=== PATIENT | female | born 1950 | race Caucasian/White ===

== ENCOUNTER 2019-05-31 10:07 | Outpatient (CLI) | payer OTHER | END 2019-05-31 15:10 | disposition home or self-care (01) | LOC: RAD 10:07 | DX: Z00.8 Encounter for other general examination (principal) ==

== ENCOUNTER → 2019-12-29 08:09 | Outpatient (CLI) | payer OTHER | END | disposition home or self-care (01) | LOC: LAB 08:09 | PROVIDERS: ATTEND Ophthalmology | DX: Z20.828 Contact with and (suspected) exposure to other viral communicable diseases (principal); E78.49 Other hyperlipidemia; D51.1 Vitamin B12 deficiency anemia due to selective vitamin B12 malabsorption with proteinuria; E05.80 Other thyrotoxicosis without thyrotoxic crisis or storm; E55.9 Vitamin D deficiency, unspecified; N95.8 Other specified menopausal and perimenopausal disorders; A53.9 Syphilis, unspecified; R05 Cough; R06.2 Wheezing; R50.9 Fever, unspecified ==

== ENCOUNTER → 2020-01-24 | Outpatient (CLI) | payer OTHER | END | disposition home or self-care (01) | LOC: PPH VACUNA 08:00 | DX: Z23 Encounter for immunization (principal) ==

== ENCOUNTER → 2020-09-02 12:15 | Outpatient (CLI) | payer OTHER | END | disposition home or self-care (01) | LOC: LAB 12:15 | PROVIDERS: ATTEND Emergency Medicine Pediatric Emergency Medicine | DX: R05 Cough (principal); R50.9 Fever, unspecified; R06.02 Shortness of breath; Z03.818 Encounter for observation for suspected exposure to other biological agents ruled out; Z20.822 Contact with and (suspected) exposure to COVID-19; Z20.828 Contact with and (suspected) exposure to other viral communicable diseases ==

== ENCOUNTER 2020-10-30 08:34 | Outpatient (CLI) | payer OTHER | END 2020-10-30 15:17 | disposition home or self-care (01) | LOC: LAB 08:34 | PROVIDERS: ATTEND Emergency Medicine Pediatric Emergency Medicine | DX: E78.00 Pure hypercholesterolemia, unspecified (principal) ==

== ENCOUNTER 2021-01-26 08:00 | Outpatient (CLI) | payer OTHER | END 2021-01-26 08:30 | disposition home or self-care (01) | LOC: PPH VACUNA 08:00 | PROVIDERS: ATTEND Emergency Medicine Pediatric Emergency Medicine | DX: Z23 Encounter for immunization (principal) ==

== ENCOUNTER 2021-03-16 08:44 | Outpatient (CLI) | payer OTHER | END 2021-03-16 13:16 | disposition home or self-care (01) | LOC: LAB 08:44 | PROVIDERS: ATTEND Emergency Medicine Pediatric Emergency Medicine | DX: E78.00 Pure hypercholesterolemia, unspecified (principal); E78.1 Pure hyperglyceridemia; E73.8 Other lactose intolerance ==

== ENCOUNTER 2021-05-13 08:45 | Outpatient (CLI) | payer OTHER | END 2021-05-13 09:02 | disposition home or self-care (01) | LOC: TOM 08:45 | PROVIDERS: ATTEND Emergency Medicine Pediatric Emergency Medicine | DX: N84.0 Polyp of corpus uteri (principal); K57.90 Diverticulosis of intestine, part unspecified, without perforation or abscess without bleeding; K36 Other appendicitis; R10.84 Generalized abdominal pain ==

== ENCOUNTER 2021-06-05 08:43 | Outpatient (CLI) | payer OTHER | END 2021-06-05 08:44 | disposition home or self-care (01) | LOC: LAB 08:43 | PROVIDERS: ATTEND Emergency Medicine Pediatric Emergency Medicine | DX: Z11.3 Encounter for screening for infections with a predominantly sexual mode of transmission (principal) ==

== ENCOUNTER 2022-02-05 10:28 | Outpatient (CLI) | payer OTHER | END 2022-02-05 10:38 | disposition home or self-care (01) | LOC: PPH VACUNA 10:28 | PROVIDERS: ATTEND Emergency Medicine Pediatric Emergency Medicine | DX: Z23 Encounter for immunization (principal) ==

== ENCOUNTER 2022-07-02 08:24 | Outpatient (CLI) | payer OTHER | END 2022-07-02 08:35 | disposition home or self-care (01) | LOC: LAB 08:24 | PROVIDERS: ATTEND Emergency Medicine Pediatric Emergency Medicine | DX: J45.998 Other asthma (principal); E78.00 Pure hypercholesterolemia, unspecified; E01.8 Other iodine-deficiency related thyroid disorders and allied conditions; D51.1 Vitamin B12 deficiency anemia due to selective vitamin B12 malabsorption with proteinuria; A54.29 Other gonococcal genitourinary infections; E05.80 Other thyrotoxicosis without thyrotoxic crisis or storm; E55.9 Vitamin D deficiency, unspecified; B15.0 Hepatitis A with hepatic coma; B96.81 Helicobacter pylori [H. pylori] as the cause of diseases classified elsewhere; Z11.59 Encounter for screening for other viral diseases ==

== ENCOUNTER 2022-08-31 10:27 | Outpatient (CLI) | payer OTHER | END 2022-08-31 10:31 | disposition home or self-care (01) | LOC: LAB 10:27 | PROVIDERS: ATTEND Emergency Medicine Pediatric Emergency Medicine | DX: E78.5 Hyperlipidemia, unspecified (principal); E11.9 Type 2 diabetes mellitus without complications ==

== ENCOUNTER 2023-01-10 08:21 | Outpatient (CLI) | payer OTHER | END 2023-01-10 08:25 | disposition home or self-care (01) | LOC: LAB 08:21 | PROVIDERS: ATTEND Emergency Medicine Pediatric Emergency Medicine | DX: E78.2 Mixed hyperlipidemia (principal) ==

== ENCOUNTER 2023-08-11 09:11 | Outpatient (CLI) | payer OTHER ==
[2023-08-11 09:43] LABS: HEMATOCRIT 41.7 % (36.0-45.00); HEMOGLOBIN 13.9 g/dL (12.0-15.00); MEAN CELL VOLUME 87.7 fL (80.00-100.00); MEAN CORPUSCULAR HEMOGLOBIN 29.3 pg (27.00-32.0); MEAN CORPUSCULAR HGB CONC 33.4 g/dl (32.0-36.0); PLATELET COUNT 249 K/uL (150-450); RED BLOOD COUNT 4.76 M/uL (4.00-6.00)
[2023-08-11 09:44] LABS: URINE APPEARANCE Clear; URINE BILIRRUBIN Negative (NEGATIVE); URINE BLOOD Negative; URINE COLOR Dark Yellow; URINE GLUCOSE Negative (NEGATIVE); URINE LEUKOCYTE Trace; URINE NITRATE Negative; URINE PROTEIN Negative (NEGATIVE)
[2023-08-11 09:49] LABS: URINE BACTERIA 40.3 uL (0.0-1933); URINE EPITHELIAL CELLS 17.7 uL (0.0-38.8); URINE RBC 18.8 uL (0.0-20.8); URINE WBC 35.8 uL (0.0-23.2)
[2023-08-11 10:21] LABS: ALBUMIN 3.5 gm/dL (3.4-5.0); BILIRUBIN TOTAL 1.13 mg/dL (0.3-1.2); CALCIUM 9.5 mg/dL (8.5-10.1); CHOL HDL RATIO 5.6 (0-5.0); CREATININE SERUM 0.8 mg/dL (0.55-1.02); GFR 70.31; GLOBULINA 3.2 G/DL (2.4-3.5); POTASSIUM 3.83 mEq/L (3.5-5.1); TOTAL PROTEIN 6.7 gm/dL (6.4-8.2)
== END 2023-08-11 09:17 | disposition home or self-care (01) ==
LOC: LAB 09:11
PROVIDERS: ATTEND Emergency Medicine Pediatric Emergency Medicine
DX: E78.00 Pure hypercholesterolemia, unspecified (principal); Z00.00 Encounter for general adult medical examination without abnormal findings

== ENCOUNTER → 2024-08-18 | Outpatient (CLI) | payer OTHER ==
[2024-08-18 11:32] LABS: HEMATOCRIT 41.5 % (36.0-45.00); HEMOGLOBIN 13.8 g/dL (12.0-15.00); MEAN CELL VOLUME 91.1 fL (80.00-100.00); MEAN CORPUSCULAR HEMOGLOBIN 30.2 pg (27.00-32.0); MEAN CORPUSCULAR HGB CONC 33.1 g/dl (32.0-36.0); PLATELET COUNT 230 K/uL (150-450); RED BLOOD COUNT 4.56 M/uL (4.00-6.00); RED CELL DISTRIBUTION WIDTH 13.8 % (11.5-14.5)
[2024-08-18 11:58] LABS: CHOL HDL RATIO 3.2 (0-5.0)
== END | disposition home or self-care (01) ==
LOC: LAB 09:57
PROVIDERS: ATTEND Emergency Medicine
DX: I10 Essential (primary) hypertension (principal); C00-D49 Neoplasms; E78.00 Pure hypercholesterolemia, unspecified